=== PATIENT | male | born 1985 | race African-American/Black ===

== ENCOUNTER 2016-12-26 00:14 | Emergency (ER) | payer BC ==
[~2016-12-26] VITALS: Ht 185.4 cm; Wt 71.7 kg
[2016-12-26 00:53] VITALS: BP 136/93
[2016-12-26] MEDS ORDERED: CEPH-263 PO (01:32)
--- NOTE | 2016-12-26 01:32 | PHYS DOC ---
Past Medical History Past Medical History: No Pertinent History Past Surgical History: Other Additional Past Surgical Histo: RIGHT FEMUR Alcohol Use: Heavy Additional Information: DRINKS 2 BEERS DAILY Drug Use: Marijuana Adult General Chief Complaint Chief Complaint: LOWER EXTREMITY SWELLING HPI HPI 31-year-old male presenting to the emergency department with redness and swelling of the left foot. He also reports pain in left foot. This started today. Location left foot. Duration constant. No alleviating or exacerbating factors present. He denies having a fever at home. He denies any streaking of the rash up his leg. He denies any other major medical conditions and denies taking medications. Review of systems is negative for chest pain fevers chills nausea vomiting abdominal pain. All other review of systems is negative unless otherwise noted in history of present illness. ED course: 31-year-old male presenting to the emergency department with acute cellulitis of the foot. Vital signs unremarkable. Patient was well-appearing and nontoxic. No crepitus to palpation of the foot. The cellulitis was demarcated with a marker for follow-up purposes. The patient was then discharged home with oral Keflex to follow-up with his primary care physician in the next 2-3 days. The patient was then discharged home in stable condition to follow up with their primary care physician over the next 2-3 days. They were to return if their symptoms worsened or if they were concerned for any reason. [id number] discharge instructions and return precautions were given. Patient's questions were answered to their satisfaction. Patient is comfortable plan. Review of Systems Review of Systems SEE ABOVE. Allergies Allergies Allergies Coded Allergies Type Severity Reaction Last Updated Verified No Known Drug Allergies 12/26/16 No Physical Exam Physical Exam SEE ABOVE Constitutional: Well developed, well nourished, no acute distress, non-toxic appearance. [] HENT: Normocephalic, atraumatic, bilateral external ears normal, oropharynx moist, no oral exudates, nose normal. [] Eyes: PERRLA, EOMI, conjunctiva normal, no discharge. [] Neck: Normal range of motion, no tenderness, supple, no stridor. [] Cardiovascular:Heart rate regular rhythm, no murmur [] Lungs & Thorax: Bilateral breath sounds clear to auscultation [] Abdomen: Bowel sounds normal, soft, no tenderness, no masses, no pulsatile masses. [] Skin: Warm, dry, no erythema, no rash. [] Back: No tenderness, no CVA tenderness. [] Extremities: Left foot has erythema with swelling on the dorsum of the foot. Palpable pulse with 2 second cap refill otherwise unremarkable. Neurologic: Alert and oriented X 3, normal motor function, normal sensory function, no focal deficits noted. [] Psychologic: Affect normal, judgement normal, mood normal. [] Current Patient Data Vital Signs Vital Signs Date Time Temp Pulse Resp B/P (MAP) Pulse Ox O2 Delivery O2 Flow Rate FiO2 12/26/16 00:53 98.8 94 20 136/93 (107) 97 Room Air 98.8 EKG EKG [] Radiology/Procedures Radiology/Procedures [] Course & Med Decision Making Course & Med Decision Making Pertinent Labs and Imaging studies reviewed. (See chart for details) [] Dragon Disclaimer Dragon Disclaimer This electronic medical record was generated, in whole or in part, using a voice recognition dictation system. Departure Departure Impression: Primary Impression: Cellulitis Additional Impression: Cellulitis and abscess of lower extremity Disposition: HOME, SELF-CARE Condition: STABLE Referrals: NO PCP (PCP) MARISOL PETERSON MD Patient Instructions: Cellulitis Additional Instructions: Thank you for allowing us to participate in your care today. Followup with your primary care physician in 3 days if your symptoms do not improve. Call your Primary Doctor tomorrow and inform them of your visit today. If you do not have a primary care provider you can ask for a list of our primary care providers. Return to the emergency department you have any new or concerning findings. This should be evaluated by the primary care physician and any necessary consulting services for continued management within a few days after discharge. Return to emergency room if you have any new or concerning symptoms including but not limited to fever, chills, nausea, vomiting, intractable pain, any new rashes, chest pain, shortness of air, uncontrolled bleeding, difficulty breathing, and/or vision loss. Scripts Cephalexin (KEFLEX) 250 Mg Capsule 1 CAP PO QID, #28 CAP Prov: COLT TELLO MD 12/26/16 Problem Qualifiers COLT TELLO MD Dec 26, 2016 01:32
[2016-12-27] MEDS ORDERED: fentaNYL PF VIAL 100 MCG/2 ML VIAL ONE (14:42)
== END 2016-12-26 01:46 | disposition home or self-care (01) ==
LOC: ER 00:14
DX: L03.116 Cellulitis of left lower limb (principal); F10.10 Alcohol abuse, uncomplicated; F12.10 Cannabis abuse, uncomplicated
CPT/HCPCS: 99283; J3010